=== PATIENT | male | born 1955 | race Caucasian/White ===

== ENCOUNTER 2017-02-02 01:51 | Emergency (ER) | payer OTHER ==
--- NOTE | 2017-02-02 02:32 | EDPHY ---
H & P Stated Complaint: left scapula pain Time Seen by Provider: 02/02/17 01:53 HPI/ROS: Chief complaint: Left back pain HPI: 61-year-old male began having pain around his left scapula yesterday afternoon about 3. Pain has persisted since that time. He has a family history of coronary artery disease and has a history of a lacunar infarct in the past 7 is concerned about the possibility is might represent ACS. He denies any shortness of breath. Pain is constant aching. It does seem to get worse when he turns his head to the side her reaches with his arm. No substernal chest pain. Does not radiate. No cough. No fevers or chills. No calf pain or tenderness. No recent travel. Has had a hypercoagulable workup in the past which was negative. ROS: 10 point Review of Systems is negative except as noted in the HPI. Past medical history: lacunar infarct Medications: Aspirin daily Allergies: Penicillin Social history: Does not smoke, does not drink, does not use any recreational drugs Physical exam: Gen: Awake, Alert, No Distress HEENT: Nose: no rhinorrhea Eyes: PERRLA, EOMI Mouth: Moist mucosa Neck: Supple, no JVD Chest: nontender, lungs clear to auscultation Heart: S1, S2 normal, no murmur Abd: Soft, non-tender, no guarding Back: no CVA tenderness, no midline tenderness Ext: no edema, non-tender Skin: no rash Neuro: CN II-XII intact, Sensation grossly intact, Strength 5/5 in bilateral upper and lower extremities - Personal History Tetanus Vaccine Date: 2009 - Medical/Surgical History Hx Asthma: No Hx Chronic Respiratory Disease: No Hx Diabetes: No Hx Cardiac Disease: No Hx Renal Disease: No Hx Cirrhosis: No Hx Alcoholism: No Hx HIV/AIDS: No Hx Splenectomy or Spleen Trauma: No Other PMH: inflammatory proctitis, partial total knee, lacunar infarct, - Social History Smoking Status: Never smoked Constitutional: Initial Vital Signs Temperature (C) 36.4 C 02/02/17 01:55 Heart Rate 71 02/02/17 01:55 Respiratory Rate 20 02/02/17 01:55 Blood Pressure 131/79 H 02/02/17 01:55 O2 Sat (%) 94 02/02/17 01:55 O2 Delivery Mode Room Air Allergies/Adverse Reactions: Penicillins Allergy (Unknown, Verified 02/02/17 01:54) Hives Home Medications: Medication Instructions Recorded Mesalamine [Lialda] 2.4 g PO DAILY 09/22/16 Aspirin EC [Aspirin EC 325 mg (*)] 325 mg PO DAILY@18 11/10/16 Tamsulosin HCl [Flomax 0.4 MG (*)] 0.4 mg PO DAILY@18 11/10/16 Ketorolac Tromethamine [Toradol 30 30 mg IVP Q6 PRN #0 vial 11/11/16 mg/ml Inj (*)] Medical Decision Making - Diagnostics EKG Interpretation: EC sinus rhythm with a rate of 64, normal axis, normal intervals, very minimal diffuse ST elevations consistent with early repolarization versus pericarditis. ED Course/Re-evaluation: ECG is nonacute. Troponin is negative. Patient's symptoms are very atypical been going on for over 12 hours now. Plan will be to discharge with him to follow up with Cardiology early next week for outpatient stress testing. - Data Points Laboratory Results: 02/02/17 02:55 Troponin I < 0.012 ng/mL ng/mL (0-0.034) Departure - Departure Disposition: Home, Routine, Self-Care Clinical Impression: Back pain Condition: Good Instructions: Back Pain (ED) Additional Instructions: Follow up with Cardiology on Saturday to arrange for outpatient stress testing. Return to the emergency depart for increasing pain, shortness of breath, nausea , vomiting, fainting, or any other concerns. Referrals: Ras Allen MD [Primary Care Provider] - As per Instructions Marques Hastings MD [Medical Doctor] - As per Instructions
--- NOTE | 2017-02-02 02:48 | CPEKG ---
Heart Rate: 64 RR Interval: 938 P-R Interval: 180 QRSD Interval: 76 QT Interval: 400 QTC Interval: 413 P [place]: 56 QRS [place]: 77 T Wave [place]: 54 EKG Severity - ABNORMAL ECG - EKG Impression: SINUS RHYTHM EKG Impression: PROBABLE LEFT ATRIAL ABNORMALITY EKG Impression: ST ELEVATION SUGGESTS PERICARDITIS Electronically Signed By: Marques Souza 02-Feb-2017 07:06:14
[2017-02-02 04:00] VITALS: BP 120/86; PULSE 64; RESP 16; TEMP 97.7; O2SAT 96
== END 2017-02-02 04:00 | disposition home or self-care (01) ==
DX: M54.9 Dorsalgia, unspecified (principal); Z79.82 Long term (current) use of aspirin